=== PATIENT | female | born 1955 | race Hispanic/Latino ===

== ENCOUNTER 2019-01-12 13:59 | Emergency (ER) | payer MEDICARE ==
[2019-01-12] MEDS ORDERED: KETOROLAC TROMETHAMINE 30MG/ML ONE (14:10)
[2019-01-12] MEDS ORDERED: CYCLOBENZAPRINE HCL 10 MG TABLET ONE (14:10)
== END 2019-01-12 15:47 | disposition home or self-care (01) ==
LOC: EDH 13:59
DX: S13.9XXA Sprain of joints and ligaments of unspecified parts of neck, initial encounter (principal); S40.011A Contusion of right shoulder, initial encounter; I10 Essential (primary) hypertension; Z90.49 Acquired absence of other specified parts of digestive tract; Z98.890 Other specified postprocedural states; V49.49XA Driver injured in collision with other motor vehicles in traffic accident, initial encounter; Y93.89 Activity, other specified; Y92.89 Other specified places as the place of occurrence of the external cause; Y99.8 Other external cause status
CPT/HCPCS: 70450; 72125; 73030; 96374; 99285; J1885